=== PATIENT | female | born 1970 | race Caucasian/White ===

== ENCOUNTER 2017-01-04 22:36 | Observation (INO) | payer SELFPAY ==
[~2017-01-04] VITALS: Ht 172.7 cm; Wt 108.5 kg
[~2017-01-04 22:36] MED LIST: HYDROCHLOROT12.5 MG PO; LOSARTAN POT50 MG PO; MEDDOSEPAK PO; MELOXICAM7.5 MG PO; MOTRIN800 MG PO; NORCO1 TA1 PO; PENICILLN VK500 MG PO; PERCOCET 5/325M1 TAB PO; ZOFRAN4 MG/TAB PO
[2017-01-04 23:31] LABS: HEMATOCRIT 36.9 % (37.0-47.0); HEMOGLOBIN 11.9 g/dl (12.0-16.0); IMMATURE GRANULOCYTES 0.1 % (0.0-1.0); MEAN CELL VOLUME 85.6 fL CALC (80.0-100.0); MEAN CORPUSCULAR HGB 27.6 pG CALC (26.0-32.0); MEAN CORPUSCULAR HGB CONC 32.2 g/L CALC (32.0-36.0); NEUT# 3.4 thou/uL (2.00-7.15); RED BLOOD COUNT 4.31 mill/uL (4.20-5.60); RED CELL DISTRI WIDTH 15.5 % (11.5-15.5)
[2017-01-04] MEDS ORDERED: PHENERGAN25 M1 (23:34)
[2017-01-05 00:01] LABS: ALBUMIN 3.2 g/dL (3.2-5.0); ALKALINE PHOSPHATASE 82 u/l (38-126); ANION GAP 11 (6-22 (CALC)); BILIRUBIN, TOTAL 0.3 mg/dL (0.0-1.4); BUN 11 mg/dL (7-17); BUN/CREATININE RATIO 11 (12-20 (CALC)); CALCIUM 8.6 mg/dL (8.4-10.2); CARBON DIOXIDE 27 mmol/l (22-30); CHLORIDE 107 mmol/l (95-108); GFR 60 ML/MIN (>=60 (CALC)); GFR FOR AFR.AMER. > 60 ML/MIN (>=60 (CALC)); GLUCOSE 89 mg/dL (65-105); POTASSIUM 3.9 mmol/l (3.5-5.1); SGOT/AST 19 u/l (14-36); SGPT/ALT 27 u/l (9-52); SODIUM 140 mmol/l (137-146)
[2017-01-05 00:13] LABS: MYOGLOBIN 23 ng/mL (0 - 62)
[2017-01-05 00:35] LABS: URINE BILIRUBIN - DIPSTICK NEGATIVE (NEGATIVE); URINE BLOOD DIPSTICK SMALL (NEGATIVE); URINE CLARITY CLEAR; URINE COLOR YELLOW; URINE GLUCOSE - DIPSTICK NEGATIVE (NEGATIVE); URINE KETONE NEGATIVE (NEGATIVE); URINE LEUK ESTERASE NEGATIVE (NEGATIVE); URINE NITRITE - DIPSTICK NEGATIVE (Negative); URINE PROTEIN - DIPSTICK NEGATIVE (NEG-TRACE); URINE SPECIFIC GRAVITY 1.015; URINE UROBILINOGEN - DIPSTICK 0.2 E.U./dL (0.2)
[2017-01-05 05:00] VITALS: BP 143/96
[2017-01-05 07:50] VITALS: BP 133/83
[2017-01-05 11:55] VITALS: BP 138/97
[2017-01-05 15:28] VITALS: BP 128/79
== END 2017-01-05 16:05 | disposition short-term general hospital (02) | DRG 311 ==
LOC: ED 22:36 → ED-I 23:09 → ED 01-05 02:56 → MS2 01-05 02:57
PROVIDERS: Emergency Medicine; ADMIT Internal Medicine; ATTEND Internal Medicine
DX: I20.0 Unstable angina (principal); I10 Essential (primary) hypertension; F17.210 Nicotine dependence, cigarettes, uncomplicated; Z82.49 Family history of ischemic heart disease and other diseases of the circulatory system
CPT/HCPCS: G0378

== ENCOUNTER 2017-03-24 15:04 | Emergency (ER) | payer SELFPAY ==
[~2017-03-24] VITALS: Ht 172.7 cm; Wt 102.2 kg
[~2017-03-24 15:04] MED LIST changes: +PHENERGAN25 M1
[2017-03-24] MEDS ORDERED: COZAAR100 MG PO (15:43)
[2017-03-24] MEDS ORDERED: METOPROL TAR25 MG PO (15:44)
[2017-03-24] MEDS ORDERED: ATORVASTATIN CA80 MG PO (15:44)
[2017-03-24] MEDS ORDERED: FLEXERIL5 MG PO (15:44)
[2017-03-24 16:56] LABS: HEMATOCRIT 42.2 % (37.0-47.0); HEMOGLOBIN 14.1 g/dl (12.0-16.0); IMMATURE GRANULOCYTES 0.3 % (0.0-1.0); MEAN CELL VOLUME 84.1 fL CALC (80.0-100.0); MEAN CORPUSCULAR HGB 28.1 pG CALC (26.0-32.0); MEAN CORPUSCULAR HGB CONC 33.4 g/L CALC (32.0-36.0); NEUT# 11.23 thou/uL (2.00-7.15); RED BLOOD COUNT 5.02 mill/uL (4.20-5.60); RED CELL DISTRI WIDTH 15.8 % (11.5-15.5)
[2017-03-24] MEDS ORDERED: PHENERGAN25 MG/TAB PO (17:25)
[2017-03-24 17:26] LABS: ALBUMIN 4.4 g/dL (3.2-5.0); ALKALINE PHOSPHATASE 134 u/l (38-126); ANION GAP 15 (6-22 (CALC)); BUN 23 mg/dL (7-17); BUN/CREATININE RATIO 33 (12-20 (CALC)); CALCIUM 9.6 mg/dL (8.4-10.2); CARBON DIOXIDE 26 mmol/l (22-30); CHLORIDE 100 mmol/l (95-108); CREATININE 0.7 mg/dL (0.5-1.0); GFR > 60 ML/MIN (>=60 (CALC)); GFR FOR AFR.AMER. > 60 ML/MIN (>=60 (CALC)); GLUCOSE 91 mg/dL (65-105); POTASSIUM 3.3 mmol/l (3.5-5.1); SGOT/AST 20 u/l (14-36); SGPT/ALT 40 u/l (9-52); SODIUM 137 mmol/l (137-146); TOTAL PROTEIN 7.5 g/dL (6.3-8.2)
[2017-03-24] MEDS ORDERED: BACTRIM DS1 TAB PO (18:22)
[2017-03-24] MEDS ORDERED: MOTRIN800 MG PO (18:22)
[2017-03-24] MEDS ORDERED: TRAMADOL HYDROC50 MG PO (18:22)
[2017-03-24 19:40] VITALS: BP 134/79
== END 2017-03-24 19:40 | disposition home or self-care (01) | DRG 603 ==
LOC: ED 15:04
PROVIDERS: Emergency Medicine
PROC: 0H98XZZ Drainage of Buttock Skin, External Approach (ICD-10-PCS; principal; 2017-03-24)
DX: L02.31 Cutaneous abscess of buttock (principal); L03.317 Cellulitis of buttock

== ENCOUNTER 2017-06-12 13:41 | Emergency (ER) | payer SELFPAY ==
[~2017-06-12] VITALS: Ht 172.7 cm; Wt 102.0 kg
[~2017-06-12 13:41] MED LIST changes: +ATORVASTATIN CA80 MG PO; +BACTRIM DS1 TAB PO; +COZAAR100 MG PO; +FLEXERIL5 MG PO; +METOPROL TAR25 MG PO; +PHENERGAN25 MG/TAB PO; +TRAMADOL HYDROC50 MG PO
[2017-06-12] MEDS ORDERED: BACTRIM DS1 TAB PO (14:24)
[2017-06-12 14:35] VITALS: BP 132/89
== END 2017-06-12 14:35 | disposition home or self-care (01) | DRG 607 ==
LOC: ED 13:41
DX: R22.2 Localized swelling, mass and lump, trunk (principal); I10 Essential (primary) hypertension; F17.210 Nicotine dependence, cigarettes, uncomplicated

== ENCOUNTER 2017-10-11 16:27 | Emergency (ER) | payer SELFPAY | END 2017-10-11 16:32 | disposition left against medical advice (07) | DRG 951 | LOC: ED 16:27 → LWOBS 16:28 | DX: Z91.19 Patient's noncompliance with other medical treatment and regimen (principal) ==

== ENCOUNTER 2017-11-28 13:17 | Emergency (ER) | payer BC ==
[~2017-11-28] VITALS: Ht 172.7 cm; Wt 110.0 kg
[2017-11-28] MEDS ORDERED: DOXYCYC MONO100 M1 PO (13:45)
[2017-11-28 14:05] VITALS: BP 131/77
== END 2017-11-28 14:05 | disposition home or self-care (01) | DRG 203 ==
LOC: ED 13:17
DX: J40 Bronchitis, not specified as acute or chronic (principal); E78.5 Hyperlipidemia, unspecified; I10 Essential (primary) hypertension; F17.210 Nicotine dependence, cigarettes, uncomplicated

== ENCOUNTER 2018-01-10 18:48 | Emergency (ER) | payer BC ==
[~2018-01-10] VITALS: Ht 172.7 cm; Wt 107.0 kg
[~2018-01-10 18:48] MED LIST changes: +DOXYCYC MONO100 M1 PO
[2018-01-10] MEDS ORDERED: TAMAZAPAM PO (18:57)
[2018-01-10] MEDS ORDERED: LOPRESSOR50 M1 PO (18:58)
[2018-01-10 19:54] LABS: HEMATOCRIT 43.7 % (37.0-47.0); IMMATURE GRANULOCYTES 0.3 % (0.0-1.0); MEAN CELL VOLUME 86.4 fL CALC (80.0-100.0); MEAN CORPUSCULAR HGB 27.7 pG CALC (26.0-32.0); NEUT# 5.31 thou/uL (2.00-7.15); RED BLOOD COUNT 5.06 mill/uL (4.20-5.60); RED CELL DISTRI WIDTH 15.5 % (11.5-15.5)
[2018-01-10 20:02] LABS: ALBUMIN 4.3 g/dL (3.2-5.0); ALKALINE PHOSPHATASE 114 u/l (38-126); ANION GAP 17 (6-22 (CALC)); BILIRUBIN, TOTAL 0.5 mg/dL (0.0-1.4); BUN 13 mg/dL (7-17); BUN/CREATININE RATIO 19 (12-20 (CALC)); CARBON DIOXIDE 26 mmol/l (22-30); CHLORIDE 102 mmol/l (95-108); CREATININE 0.7 mg/dL (0.5-1.0); GFR > 60 ML/MIN (>=60 (CALC)); GFR FOR AFR.AMER. > 60 ML/MIN (>=60 (CALC)); SGOT/AST 23 u/l (14-36); SGPT/ALT 39 u/l (9-52); SODIUM 141 mmol/l (137-146); TOTAL PROTEIN 7.7 g/dL (6.3-8.2)
[2018-01-10 20:12] LABS: POTASSIUM 4.1 mmol/l (3.5-5.1)
[2018-01-10 20:28] LABS: URINE BILIRUBIN - DIPSTICK NEGATIVE (NEGATIVE); URINE BLOOD DIPSTICK LARGE (NEGATIVE); URINE COLOR YELLOW; URINE GLUCOSE - DIPSTICK NEGATIVE (NEGATIVE); URINE KETONE NEGATIVE (NEGATIVE); URINE LEUK ESTERASE NEGATIVE (NEGATIVE); URINE NITRITE - DIPSTICK NEGATIVE (Negative); URINE PH 5.5 (4.5-8.0); URINE PROTEIN - DIPSTICK NEGATIVE (NEG-TRACE); URINE SPECIFIC GRAVITY >=1.030; URINE UROBILINOGEN - DIPSTICK 0.2 E.U./dL (0.2)
[2018-01-10 20:29] LABS: URINE CLARITY CLEAR
[2018-01-10 20:38] LABS: URINE RBC 25-50 RBC/hpf (0-5); URINE SQUAMOUS EPITHELIAL CELL FEW EPI/hpf (0-FEW)
[2018-01-10] MEDS ORDERED: PHENERGAN25 MG/TAB PO (21:36)
[2018-01-10 21:49] VITALS: BP 128/76
== END 2018-01-10 21:50 | disposition home or self-care (01) | DRG 866 ==
LOC: ED 18:48
PROVIDERS: Family Medicine
DX: B34.9 Viral infection, unspecified (principal); R31.9 Hematuria, unspecified; E78.5 Hyperlipidemia, unspecified; I10 Essential (primary) hypertension; F17.210 Nicotine dependence, cigarettes, uncomplicated